=== PATIENT | male | born 1950 | race Caucasian/White ===

== ENCOUNTER 2018-07-03 10:00 | Outpatient (CLI) | payer MEDICARE ==
[~2018-07-03] VITALS: Ht 170.2 cm; Wt 72.6 kg
[~2018-07-03 10:00] MED LIST: ASPI-611 PO; LORA1TAB PO; LOVA20TA2 PO; METF500T PO
[2018-07-04] MEDS ORDERED: mupirocin 2% nasal ointment 1gm UD NS SCH (05:00)
[2018-07-04] MEDS ORDERED: cefazolin/dext.iso 2gm/100 ML IV ONE (05:30)
[2018-07-04] MEDS ORDERED: albuterol 2.5 MG/3 ML nebule NEB ONE (05:30)
== END 2018-07-03 23:59 | disposition home or self-care (01) ==
LOC: RT 10:00 → EDSTATUS 07-11 12:30
PROVIDERS: ATTEND Thoracic Surgery (Cardiothoracic Vascular Surgery)
DX: Z01.811 Encounter for preprocedural respiratory examination (principal); R91.1 Solitary pulmonary nodule; F17.210 Nicotine dependence, cigarettes, uncomplicated; E11.9 Type 2 diabetes mellitus without complications; J45.909 Unspecified asthma, uncomplicated; Z79.82 Long term (current) use of aspirin; Z79.84 Long term (current) use of oral hypoglycemic drugs
CPT/HCPCS: 94010; 94727; 94729; J0690